=== PATIENT | male | born 1955 | race African-American/Black ===

== ENCOUNTER 2018-08-19 06:35 | Emergency (ER) | payer SELFPAY ==
[~2018-08-19] VITALS: Ht 180.3 cm; Wt 96.0 kg
[2018-08-19] MEDS ORDERED: FLUORESCEIN SODIUM 1MG/STRIP RIGHTEYE ONE (07:45)
[2018-08-19] MEDS ORDERED: TETRACAINE 0.5% OPHTH DROPS 4ML RIGHTEYE ONE (07:45)
[2018-08-19 08:51] VITALS: BP 140/77
== END 2018-08-19 08:56 | disposition home or self-care (01) ==
LOC: ER 06:35
DX: H57.11 Ocular pain, right eye (principal); H10.9 Unspecified conjunctivitis
CPT/HCPCS: 99283